=== PATIENT | female | born 1995 | race Caucasian/White ===

== ENCOUNTER 2020-05-18 19:35 | Emergency (ER) | payer MEDICAID ==
[~2020-05-18] VITALS: Ht 170.2 cm; Wt 107.4 kg
[2020-05-18] MEDS ORDERED: ONDANSETRON 2MG/ML, 2ML ONE (20:50)
[2020-05-18] MEDS ORDERED: MORPHINE SULFATE 4 MG/ML, 1ML ONE (20:51)
[2020-05-18] MEDS ORDERED: ONDANSETRON 2MG/ML, 2ML IVPush ONE (21:00)
[2020-05-18] MEDS ORDERED: MORPHINE SULFATE 4 MG/ML, 1ML IVPush PRN (21:00)
[2020-05-18 21:38] LABS: ALBUMIN 4.4 g/dL (3.4-5.0); ANION GAP 8 mmol/L (5-15); CALCIUM 9.4 mg/dL (8.5-10.1); CHLORIDE 110 mmol/L (98-107)
[2020-05-18 21:44] LABS: ALANINE AMINOTRANSFERASE 24 U/L (12-78); ALKALINE PHOSPHATASE 82 U/L (45-117); BILIRUBIN,TOTAL 0.4 mg/dL (0.2-1.0); CREATININE 0.89 mg/dL (0.55-1.02); TOTAL PROTEIN 8.5 g/dL (6.4-8.2)
[2020-05-18 21:59] LABS: MEAN CORPUSCULAR HEMOGLOBIN 18.1 pg (27.0-34.8); MEAN CORPUSCULAR VOLUME 61.5 fL (80-100); MEAN PLATELET VOLUME 8.8 fL (7.4-10.4); PLATELET COUNT 497 x10^3/uL (130-400); RED BLOOD COUNT 6.88 x10^6/uL (3.82-5.3); RED CELL DISTRIBUTION WIDTH 25.2 % (9.6-15.2)
[2020-05-18 22:00] LABS: MD YES; MEAN CORPUSCULAR HGB CONC 29.4 g/dL (32.4-35.8)
[2020-05-18 22:04] LABS: ANISOCYTOSIS 2+; BASOS#(MANUAL) 0.07 x10^3/uL (0-0.1); BASOS% (MANUAL) 1 % (0-1); EOS#(MANUAL) 0.07 x10^3/uL (0.0-0.4); EOS% (MANUAL) 1 % (1-7); LYMPH#(MANUAL) 2.23 x10^3/uL (1-3.4); LYMPHS% (MANUAL) 31 % (22-44); MICROCYTOSIS 2+; MONOS#(MANUAL) 0.29 x10^3/uL (0.3-2.7); MONOS% (MANUAL) 4 % (2-9); SEG#(MANUAL) 4.54 x10^3/uL (1.8-6.8); SEGS% (MANUAL) 63 % (42-75)
[2020-05-18 22:05] LABS: HYPOCHROMIA 1+; OVALOCYTES 1+; POLYCHROMASIA 1+; TEAR DROPS 1+
[2020-05-18 22:07] LABS: <PLATELET ESTIMATE> INCREASED
[2020-05-18 22:08] LABS: <PLT MORPHOLOGY> NORMAL PLT MORPH
--- NOTE | 2020-05-18 22:16 | NUR ---
Pt reports good effect from morphine/zofran. States, "I can still feel it, but it's much better"
[2020-05-18] MEDS ORDERED: OMNIPAQUE 350 MG/ML, 100ML BOTTLE ONE (23:09)
--- NOTE | 2020-05-19 00:40 | NUR ---
Traveled to [place] with tech
--- NOTE | 2020-05-19 01:03 | NUR ---
Break RN: [facility] result.
[2020-05-19 01:54] VITALS: BP 111/60
== END 2020-05-19 01:57 | disposition home or self-care (01) ==
LOC: ED 22:50
DX: R10.31 Right lower quadrant pain (principal); R10.9 Unspecified abdominal pain; R11.2 Nausea with vomiting, unspecified; R68.83 Chills (without fever)
CPT/HCPCS: 36415; 74177; 76830; 80053; 84703; 85025; 96374; 96375; 99285; J2270; J2405; Q9967